=== PATIENT | female | born 1960 | race Caucasian/White ===

== ENCOUNTER → 2016-04-17 | Outpatient (CLI) | payer OTHER ==
[~2016-04-17] MED LIST: IOPAMIDOL (ISOVUE 370) 100 ML BTL IV ONE; IOPAMIDOL (ISOVUE-300) 100 ML BTL IV ONE
--- NOTE | 2016-04-17 18:03 | CT ---
CT Scan of the Abdomen and Pelvis (With Contrast) Clinical Indications: Left lower quadrant pain, history of diverticulitis, rheumatoid arthritis and shingles Technique: Oral contrast was administered. 90 mL of Isovue 300 were given intravenously by machine power injection. Multidetector helical CT imaging was performed from the diaphragm to the symphysis pubis. Dose reduction techniques were utilized. Comparison: None Findings: Abdomen: The lung bases are clear, and there is no pleural fluid. The liver is normal. The biliary ducts and gallbladder are unremarkable. The pancreas and spleen are normal. The adrenal glands and kidneys are normal. No adenopathy and no masses are found. No aneurysm of the abdominal aorta. No ascites or evidence of bowel obstruction. Pelvis: There is diverticulosis of the descending and sigmoid colons without evidence of pericolonic edema or abscess. There is no pelvic free air or free fluid. The urinary bladder is unremarkable. No masses are identified. Pelvic small bowel loops are normal. The terminal ileum and appendix are norm al. No adnexal pathology is identified. No evidence for pelvic abscess. The SI joints are normal. The re is degenerative vacuum disk phenomenon at the moderately narrowed L4-L5 level. There are bulging d isks between L3 and S1. Impression: 1. Diverticulosis without radiographic evidence of diverticulitis. 2. Lumbar spondylosis. Results called to Mayela Vargas, as requested. General information for patients regarding this examination can be found at [email or web address]. If you have questions or comments about this report, please contact me at [phone] (hospital) or [phone] (cell).
== END ==
LOC: FIMAGING 15:14
PROVIDERS: ATTEND Physician Assistant
DX: K57.30 Diverticulosis of large intestine without perforation or abscess without bleeding (principal); M47.896 Other spondylosis, lumbar region; M06.9 Rheumatoid arthritis, unspecified
CPT/HCPCS: Q9967